=== PATIENT | male | born 1995 | race Caucasian/White ===

== ENCOUNTER 2018-03-25 16:34 | Emergency (ER) | payer OTHER, SELFPAY ==
[2018-03-25 16:58] VITALS: BP 124/76; PULSE 73; RESP 14; TEMP 36.9; O2SAT 98; BMI 20.2
--- NOTE | 2018-03-25 17:01 | DI.RAD.S_ITS ---
PROCEDURE: XR CHEST 2V INDICATIONS: cough for 3 weeks TECHNIQUE: 2 views of the chest were acquired. COMPARISON: None. FINDINGS: Surgical changes and devices: None. Lungs and pleura: No pleural effusions or pneumothorax. Lungs are clear. Mediastinum: Mediastinal contours are normal. Heart size is normal. Bones and chest wall: No suspicious bony abnormalities. Soft tissues appear unremarkable. IMPRESSION: No focal infiltrates are seen. Dictated by: Pasha Vazquez M.D. on 03/25/2018 at 16:19 Approved by: Pasha Vazquez M.D. on 03/25/2018 at 16:19
--- NOTE | 2018-03-25 17:58 | ED.URI ---
HPI - URI/Sore Throat <Denia Montejo PA-C - Last Filed: 03/25/18 21:53> General Chief Complaint: Upper Respiratory Symptoms Stated Complaint: DIFFICULTY BREATHING Time Seen by Provider: 03/25/18 17:58 Source: patient Mode of arrival: ambulatory Limitations: no limitations History of Present Illness HPI Narrative: This 22-year-old male comes in today due to 3-4 week history of intermittently productive cough. He states that he will occasionally see a little bit of a blood tinge in the mucus after coughing hard. He states that he has had some intermittent sinus pain and ear congestion with this. He has not had known fever, no chills or sweats. He states that sometimes he does feel short of breath and his girlfriend notes that she has heard him wheeze at night. He denies any recent travel or feeling sick. He is not having pain in his chest. His girlfriend notes that he is a regular smoker, and thinks that his symptoms have been worse with the smoky air outside, so she pushed him to come in. He states that he would not have come here for this on his own. He denies any new pain or swelling in the extremities on systems review. He states that he does not have a PCP. States that he did have lung and liver cancer diagnosed at age 16. He states he has had 2 or 3 surgeries and chemotherapy but does not know what any of these are, nor can he say who his oncologist is in [place]. Related Data Home Medications Medication Instructions Recorded Confirmed No Known Home Medications 03/25/18 03/25/18 Previous Rx's Medication Instructions Recorded albuterol sulfate 1 puff INHALATION Q4-6H PRN #18 03/25/18 gram amoxicillin-pot clavulanate 1 tab PO BID #20 tab 03/25/18 [Augmentin] Allergies Allergy/AdvReac Type Severity Reaction Status Date / Time No Known Drug Allergies Allergy Verified 03/25/18 16:57 Review of Systems <Denia Montejo PA-C - Last Filed: 03/25/18 21:53> Review of Systems All systems reviewed & are unremarkable except as noted in HPI and below PFSH <JULIEN Cavazos Last Filed: 03/25/18 21:53> Comment: Patient smokes THC Exam <Denia Montejo PA-C - Last Filed: 03/25/18 21:53> Narrative Exam Narrative: GENERAL APPEARANCE: Patient sitting comfortably, in no distress. HEAD: Mild right frontal area and maxillary tenderness, none on the left EYES: PERRL, EOMI. EARS: Normal auditory canals, TMS not visible secondary to increased cerumen ORAL CAVITY: Normal oropharynx. THROAT: Mild erythema, no exudate, PND noted NECK/THYROID: Neck supple, full range of motion, shotty anterior cervical cervical lymphadenopathy. LUNGS: Clear to auscultation bilaterally, no cough on exam. HEART: RRR without murmur, nl S1, S2, no S3 or S4. EXTREMITIES: No edema or calf tenderness Initial Vital Signs Initial Vital Signs: Vital Signs Temperature 98.5 F 03/25/18 16:58 Pulse Rate 73 03/25/18 16:58 Respiratory Rate 14 03/25/18 16:58 Blood Pressure 124/76 H 03/25/18 16:58 Pulse Oximetry 98 03/25/18 16:58 <Piotr Torre DO - Last Filed: 03/25/18 23:08> Initial Vital Signs Initial Vital Signs: Vital Signs Temperature 98.5 F 03/25/18 16:58 Pulse Rate 73 03/25/18 16:58 Respiratory Rate 14 03/25/18 16:58 Blood Pressure 124/76 H 03/25/18 16:58 Pulse Oximetry 98 03/25/18 16:58 Course <Denia Montejo PA-C - Last Filed: 03/25/18 21:53> Additional Information: Patient reported improvement with nebulizer treatment. He has had symptoms for more than 3 weeks with persistent productive cough and sinus tenderness, so we did elect to treat with antibiotic but also discussed possibility of virus exacerbated by reactive airways. I advised him to call his insurance and get set up with a local PCP for follow-up. He agreed to return if any acutely worsening symptoms Orders Ordered: ED Orders 03/25/18 17:01 XR chest 2V Stat Discontinued Medications Albuterol (Ventolin) 2.5 mg INH NOW ONE Stop: 03/25/18 18:13 Last Admin: 03/25/18 18:23 Dose: 2.5 mg Vital Signs - 8 hr 03/25/18 16:58 03/25/18 18:23 03/25/18 18:57 Temperature 98.5 F Pulse Rate 73 72 67 Respiratory Rate 14 18 Blood Pressure 124/76 H Blood Pressure [Right Arm] 140/79 H Pulse Oximetry 98 100 100 <Piotr Torre DO - Last Filed: 03/25/18 23:08> Orders Ordered: ED Orders 03/25/18 17:01 XR chest 2V Stat Discontinued Medications Albuterol (Ventolin) 2.5 mg INH NOW ONE Stop: 03/25/18 18:13 Last Admin: 03/25/18 18:23 Dose: 2.5 mg Vital Signs - 8 hr 03/25/18 16:58 03/25/18 18:23 03/25/18 18:57 Temperature 98.5 F Pulse Rate 73 72 67 Respiratory Rate 14 18 Blood Pressure 124/76 H Blood Pressure [Right Arm] 140/79 H Pulse Oximetry 98 100 100 MDM - URI/Sore Throat <Denia Montejo PA-C - Last Filed: 03/25/18 21:53> Imaging Data Chest x-ray: Radiologist's impression: [place] [address] XRay Report Signed Patient: DOMONIQUE DU JR MR#: [id number] : 1995 Acct:[id number] Age/Sex: 22 / M Date of Service: 03/25/18 Loc: ED Accession Number: [id number] Procedure: XR chest 2V Ordering Provider: Denia Montejo P.A-C PROCEDURE: XR CHEST 2V INDICATIONS: cough for 3 weeks TECHNIQUE: 2 views of the chest were acquired. COMPARISON: None. FINDINGS: Surgical changes and devices: None. Lungs and pleura: No pleural effusions or pneumothorax. Lungs are clear. Mediastinum: Mediastinal contours are normal. Heart size is normal. Bones and chest wall: No suspicious bony abnormalities. Soft tissues appear unremarkable. IMPRESSION: No focal infiltrates are seen. Dictated by: Pasha Vazquez M.D. on 03/25/2018 at 16:19 Approved by: Pasha Vazquez M.D. on 03/25/2018 at 16:19 Discharge Plan Departure Patient Disposition: Home Clinical Impression: Sinusitis, Cough, Mild reactive airways disease Discharge Date/Time: 03/25/18 19:26 Interventions: ED Discharge Assessment Last Done: 03/25/18 19:25 Instructions: DI for Sinusitis, DI for Reactive Airway Disease-Adult Activity Restrictions/Additional Instructions: Please continue Sudafed as needed to help with sinus and nasal pressure. You can add an antihistamine such as Zyrtec as well which may help with your postnasal drip and cough. I have prescribed an antibiotic for you to start due to the persistent sinus pain and cough. Please take this twice daily, and you can also use the inhaler I have prescribed as needed to help with cough and tight chest. You should return right away, as we talked about if you have any acutely worsening symptoms. I do recommend you call your insurance and get set up with a local primary care provider so that you can follow up and determine whether you need any regular inhaler or other treatment for your lungs. Prescriptions: New albuterol sulfate 90 mcg/actuation HFA aerosol inhaler 1 puff INHALATION Q4-6H PRN (Reason: shortness of breath or wheezing) Qty: 18 RF: 0 amoxicillin-pot clavulanate [Augmentin] 875-125 mg tablet 1 tab PO BID Qty: 20 RF: 0 No Action No Known Home Medications RF: 0 <Piotr Torre DO - Last Filed: 03/25/18 23:08> [facility] ED Attending [place] Attestation: I was available for consultation during this patient's emergency department encounter
[2018-03-25 18:23] VITALS: PULSE 72; O2SAT 100
[2018-03-25] MEDS: ALBUTEROL 2.5 MG/3 ML NEB (ADULT) INH (18:23)
[2018-03-25 18:57] VITALS: BP 140/79; PULSE 67; RESP 18; O2SAT 100
== END 2018-03-25 19:26 | disposition home or self-care (01) ==
PROVIDERS: Emergency Provider Internal Medicine
DX: J45.909 Unspecified asthma, uncomplicated (principal); J32.9 Chronic sinusitis, unspecified; R05 Cough
CPT/HCPCS: 71046; 94640; 99282; 99283; J7613